=== PATIENT | male | born 1975 | race Hispanic/Latino ===

== ENCOUNTER 2017-08-05 12:02 | Outpatient (CLI) | payer OTHER ==
[2017-08-05 12:57] LABS: #Basophils 0.1 thou/uL (0.0-0.2); #Eosinphils 0.1 thou/uL (0.0-0.7); #Lymphocytes 2.2 thou/uL (1.20-3.40); #Monocytes 0.6 thou/uL (0.11-0.59); #Neutrophils 3.6 thou/uL (1.40-6.50); %Basophils 0.9 % (0.0-1.0); %Eosinophils 1.4 % (0.0-10.0); %Monocytes 8.5 % (0.0-10.0); Hematocrit 46.4 % (42.0-52.0); Red Blood Cell (RBC) Count 4.55 mill/uL (4.70-6.10); White Blood Cell (WBC) Count 6.5 thou/uL (4.8-10.8)
[2017-08-05 13:21] LABS: Anion Gap 10 mmol/L (10-20); BUN (Urea Nitrogen) 9 mg/dL (8.9-20.6); Calc. Creatinine Clearance 0 mL/min (70-130); Calcium 9.5 mg/dL (7.8-10.44); Carbon Dioxide 27 mmol/L (22-29); Chloride 103 mmol/L (98-107); Estimated GFR-MDRD Greater than 90
== END 2017-08-05 12:03 | disposition home or self-care (01) ==
LOC: LABBT 12:02
PROVIDERS: ATTEND Orthopaedic Surgery
DX: Z01.818 Encounter for other preprocedural examination (principal); M25.862 Other specified joint disorders, left knee
CPT/HCPCS: 80048; 85025

== ENCOUNTER 2017-08-07 06:04 | Day surgery (SDC) | payer OTHER ==
[2017-08-05 12:20] VITALS: BMI 39.3
[2017-08-07] MEDS ORDERED: Fentanyl 100 MCG/2 ML VIAL ONE ×3 (06:32→07:19)
[2017-08-07] MEDS ORDERED: Midazolam HCl 2 mg/2 ml Vial ONE (06:32)
[2017-08-07] MEDS ORDERED: Lidocaine 1% (PF) 30 ML VIAL ONE (06:33)
[2017-08-07] MEDS ORDERED: CEFAZOLIN/Water 2 GM/20 ML SYRINGE ONE (06:44)
[2017-08-07] MEDS ORDERED: Promethazine HCl 25 MG/ML VIAL ONE (11:03)
[2017-08-07] MEDS ORDERED: HYDROcodone/Acetaminophen 5/325 mg Tablet ONE (13:50)
--- NOTE | 2017-08-09 00:27 | OP ---
DATE OF PROCEDURE: 08/07/2017 PREOPERATIVE DIAGNOSIS: Left knee grade 4 lesion medial femoral condyle. POSTOPERATIVE DIAGNOSES: 1. Left knee grade 4 lesion medial femoral condyle. 2. Multiple cartilaginous loose bodies, left knee. SURGEON: Gorge Burks M.D. DOCTOR OF NURSING PRACTICE: Carlos A Tavera PA-C BLOOD LOSS: Minimal. COMPLICATIONS: None. PROCEDURE: 1. Left knee arthroscopy with debridement and shaving and removal of multiple cartilaginous loose bernard dies. 2. Open repair of grade 4 lesion medial femoral condyle using allograft tissue. IMPLANTS: We used an Arthrex Cartiform allograft for repair of the lesion. We used four small PushL ock devices to anchor the Cartiform into the lesion. There were no complications. DISPOSITION: She did go to the recovery room in stable condition. INDICATIONS: This is a 42-year-old male who comes in complaining of pain and swelling in the knee. MRI scan showed the patient to have intact menisci, a grade 4 lesion on his medial femoral condyle. At this time, Mr. Green wished to have surgery. DESCRIPTION OF PROCEDURE: After all appropriate consent forms were explained and signed, he was take n back to the operating room and at this time was given a general anesthetic. Once the level of anes thesia was appropriate, tourniquet was placed on the left thigh and the leg was then prepped in the s tandard surgical fashion. A sand bag was used on the table as well as a left hip bolster. At this t john, the limb was exsanguinated and the tourniquet was taken up to 300 mmHg. An inferolateral portal was established and scope was placed into the knee joint. A needle localization technique was then used to make a medial working portal. Diagnostic arthroscopy commenced in the notch. The ACL and PC L were probed and found to be intact. The medial compartment was evaluated and found to have a large grade 4 lesion on the weightbearing surface of the condyle right in the center. This was just over 2 cm in length and approximately 8-9 mm in width. Remaining medial compartment including the tibial plateau as well as the meniscus was found to be intact. The lateral compartment was found to be ivan evi. There were multiple cartilaginous loose bodies found especially in the lateral gutter with a c ouple of these being fairly large near a centimeter in diameter. These were all removed with the suc tion shaver device. The patellofemoral joint was also found to be in good condition. At this time, the scope was removed, the knee was drained. Prior to removing the scope, we had placed a needle dir ectly anterior to our grade 4 lesion. This was used to make our medial arthrotomy. A 10 blade was u sed to incise down through skin. Bovie was used to coagulate any brisk venous bleeding. We then cut down through the capsule and once we did this, exposed the joint and removed some of the fat pad. Z retractors were placed and we had nice visualization and our lesion. At this time, we went ahead an d thawed our Cartiform on the back table in standard fashion getting this ready for implantation. We also went ahead and prepared our lesion on the medial femoral condyle. The first thing was to use a fresh 15 blade to make 90-degree salamanca around the outer edge. We then used a combination of ring an d normal curettes to create nice stable salamanca as well as remove the calcified cartilage layer. Once we have gotten down through this and the lesion was prepared, a 0.45 K-wire was then used with cecil babb while doing this to drill multiple small holes to promote bone marrow expression. Once this wa s done, a small piece of paper was used to map out our cartilage lesion and this was used to cut our Cartiform graft to fit in the defect. This was done on the back table with a fresh 15 blade. At thi s time, 4-0 Vicryls were used through the small pores in the Cartiform with small PushLock anchors pl aced at 12 o'clock, 6 o'clock, 3 o'clock, and 9 o'clock. Once these had all been applied, we then us ed some more 4-0 Vicryl to sew our graft into place circumferentially so that it would be stable. Once this was done, the wound was thoroughly irrigated and dried. We then placed Tisseel on the circ umference only making sure that none of this glue was in the central portion of our graft. We then w aited for 5 minutes. We then went ahead and extended the knee gently. We then closed our wound in m ultiple layers using multiple Vicryls followed by nylon sutures to close the skin as well as our port als. A bulky sterile dressing was applied and the tourniquet was let down. Toes pinked up nicely. The patient then had a knee immobilizer applied to the left lower extremity. The patient was then aw akened. He was taken to the recovery room in stable condition. All counts were correct at the end o f the case and he did receive preoperative IV antibiotics.
== END 2017-08-07 14:50 | disposition home or self-care (01) ==
LOC: SDC 06:04
PROVIDERS: ATTEND Orthopaedic Surgery
PROC: 0SUD07Z Supplement Left Knee Joint with Autologous Tissue Substitute, Open Approach (ICD-10-PCS; principal; 2017-08-07)
PROC: 0SBD4ZZ Excision of Left Knee Joint, Percutaneous Endoscopic Approach (ICD-10-PCS; principal; 2017-08-07)
DX: M94.8X9 Other specified disorders of cartilage, unspecified sites (principal); M23.42 Loose body in knee, left knee; Z98.890 Other specified postprocedural states
CPT/HCPCS: 96374; C1713; G8978-GP-CJ; G8979-GP-CJ; G8980-GP-CJ; J2001; J2250; J2550; J3010